=== PATIENT | female | born 1985 | race American Indian/Alaskan Native ===

== ENCOUNTER 2017-03-23 23:09 | Outpatient (CLI) | payer OTHER ==
[2017-03-23] MEDS ORDERED: LACTATED RINGERS 1,000 ML IV ONE (23:12)
[2017-03-24 01:06] VITALS: BP 101/55
[2017-03-24 01:08] LABS: Amphetamine Screen,Urine PRESUMPTIVE NEGATIVE; Benzodiazepines Screen,Urine PRESUMPTIVE NEGATIVE; Cannabinoid Screen,Urine PRESUMPTIVE NEGATIVE; Cocaine Screen,Urine PRESUMPTIVE NEGATIVE; Methadone Screen,Urine PRESUMPTIVE NEGATIVE; Opiate Screen,Urine PRESUMPTIVE NEGATIVE
[2017-03-24 01:09] LABS: Bilirubin,Urine NEG (Negative); Blood,Urine NEG (Negative); Color,Urine Yellow (Yellow); Mucus,Urine 2+ /HPF; Nitrite,Urine NEG (Negative); Protein,Urine <15 mg/dL mg/dL (Negative); WBC,Urine < 1.0 /HPF (0.0-6.0)
== END 2017-03-24 02:00 | disposition home or self-care (01) ==
LOC: TRG 23:09
PROVIDERS: ATTEND Obstetrics & Gynecology
DX: O42.92 Full-term premature rupture of membranes, unspecified as to length of time between rupture and onset of labor (principal); O26.892 Other specified pregnancy related conditions, second trimester; R55 Syncope and collapse; Z3A.26 26 weeks gestation of pregnancy
CPT/HCPCS: 80307; 81001